=== PATIENT | male | born 1955 | race Caucasian/White ===

== ENCOUNTER 2019-04-06 08:48 | Outpatient (RCR) | payer OTHER, SELFPAY | END 2019-05-04 00:01 | LOC: SPT 08:48 | PROVIDERS: Visit Provider Orthopaedic Surgery | DX: S46.091D Other injury of muscle(s) and tendon(s) of the rotator cuff of right shoulder, subsequent encounter (principal); X58.XXXD Exposure to other specified factors, subsequent encounter; M25.611 Stiffness of right shoulder, not elsewhere classified; M25.511 Pain in right shoulder | CPT/HCPCS: 97110 ×11; 97162 ==

== ENCOUNTER 2019-05-05 06:00 | Outpatient (RCR) | payer OTHER, SELFPAY | END 2019-06-04 23:59 | disposition home or self-care (01) | LOC: SPT 06:00 | PROVIDERS: Visit Provider Orthopaedic Surgery | DX: Z47.89 Encounter for other orthopedic aftercare (principal) | CPT/HCPCS: 97110 ==

== ENCOUNTER 2019-06-05 06:00 | Outpatient (RCR) | payer OTHER, SELFPAY | END 2019-07-03 23:59 | disposition home or self-care (01) | LOC: SPT 06:00 | PROVIDERS: PCP Orthopaedic Surgery; Visit Provider Orthopaedic Surgery | DX: Z47.89 Encounter for other orthopedic aftercare (principal) | CPT/HCPCS: 97110 ==

== ENCOUNTER 2019-07-21 07:02 | Outpatient (CLI) | payer OTHER, SELFPAY ==
--- NOTE | 2019-07-21 07:08 | MR_ITS ---
WS: [id number] MRI RIGHT SHOULDER NONCONTRAST TECHNIQUE: Sagittal T2, coronal T1, T2 and proton density imaging. Axial gradient PDE imaging. CLINICAL INFORMATION: status post rotator cuff repair COMPARISON: March 05, 2019 FINDINGS: Moderate degenerative arthritis AC joint with mild downsloping acromion. Edema in the AC joint. Inter inder rotator cuff repair is new since the prior examination. Susceptibility artifact from rotator cuff anchors. Distal supraspinatus tendon has been repositioned and anchored distally. Distal supraspinat us tendon is intact and appears improved. Infraspinatus tear appears improved with dorsal tendons int act distally. Normal teres minor. Degenerative fraying of the glenoid labrum which appears intact. Tiny chronic atr ophy of the biceps in the bicipital groove. Tendinopathy in the distal subscapularis tendon. Small sue int effusion. MR/MR shoulder RT wo con* [id number] IMPRESSION: 1. Interval rotator cuff repair with improved appearance of the supraspinatus and infraspinatus tendon with intact tendons anchored distally. No new tears. 2. Tiny biceps tendon in the bicipital groove with chronic atrophy. 3. Tendinopathy/partial intrasubstance tear in the distal subscapularis tendon . 4. Moderate degenerative arthritis of the AC joint with mild edema.
== END 2019-07-21 07:03 | disposition home or self-care (01) ==
LOC: RADSHAW 07:04
PROVIDERS: PCP Orthopaedic Surgery; Visit Provider Orthopaedic Surgery
DX: Z98.890 Other specified postprocedural states (principal); M75.101 Unspecified rotator cuff tear or rupture of right shoulder, not specified as traumatic; M19.011 Primary osteoarthritis, right shoulder
CPT/HCPCS: 73221

== ENCOUNTER 2019-07-29 05:44 | Day surgery (SDC) | payer OTHER, SELFPAY ==
[2019-07-29] VITALS (8 sets, daily range): BP systolic 113–169; BP diastolic 67–111; PULSE 84–98; RESP 16–18; TEMP 36.1–36.4; O2SAT 94–96; BMI 25.0
[2019-07-29] MEDS: sodium chloride 0.9% 1,000 ML 30 ML IV (06:29)
--- NOTE | 2019-07-29 07:21 | ANES.PREANE2 ---
Pre-Anesthetic Assessment Pre-Anesthetic Assessment: Height/Weight: Height 1.68 m Weight 70.307 kg Temp Pulse Resp BP Pulse Ox 97.6 F 98 18 122/98 95 07/29/19 06:13 07/29/19 06:13 07/29/19 06:13 07/29/19 06:13 07/29/19 06:13 Preop Diagnosis: Right rotator cuff tear Proposed Procedure: Operation Date: 07/29/19 08:00 Proposed Procedures p Shoulder Arthroscopy M75.121 [id number](Right) - Berlin Zamora MD s Rotator Cuff Repair(Right) - Berlin Zamora MD Last intake: Intake Last Liquid Date 07/28/19 Last Liquid Time 20:00 Last Solid Date 07/28/19 Last Solid Time 20:00 Social: Social History: Tobacco Packs per day: 1 Pack years: >50 Exam: Pre-Anes Outpt Exam: alert, oriented x 3, clear to auscultation bilaterally and regular rate & rhythm Airway: Submandibular: WNL Cervical ROM: WNL MP: 1 Additional comments: very poor CV/HEM: Comments: 2 blocks/2FOS without angina/mild LEON Musc/skel: Musc/skel: Lower Back Pain Comments: nonradiating Anesthetic Plan: ASA status: 2 Anesthesia: Eval. for regional block and General Meds/Allergies Current Medications: Current Medications Generic Name Dose Route Start Last Admin Trade Name Freq PRN Reason Stop Dose Admin Sodium Chloride 1,000 mls @ 30 ml s/hr 07/29/19 06:15 07/29/19 06:29 Sodium Chloride 0.9% IV 07/30/19 06:14 30 mls/hr .Q24H KERWIN Administration PFSH Anesthesia PFSH: Social History Smoking and tobacco status: current every day smoker Quit status (tobacco): considering quitting Alcohol intake: current Alcohol intake frequency: few times a week Data Anesthesia Cardiac Studies: No Data to Display
--- NOTE | 2019-07-29 07:42 | ANES.PROC ---
Anesthesia Procedures Procedure/Date: 07/29/19 Right interscalene block Procedure Narrative: R&B's of right interscalene block for postop pain mx of right shoulder surgery disc'd. Verbal and written consent obtained. Versed 2+1+1mg, Fentanyl 50ug. US utilized to identify right interscalene groove, JULIANN. Ropvicaine 0.5% + Lido 2% with epi in 3:1 ratio infiltrated 20cc total volume without problems/complications. Nerve stimulator utilized at 0.6 mAMPS Nerve Block ^: Nerve Block 1: Main Anesthesia: general anesthesia Time Out Performed: Yes Consent: requested by attending/covering physician, from patient, risks and benefits reviewed and patient agrees to proceed Nerve block location: interscalene Anesthesia monitors applied: pulse oximetry and oxygen Nerve block position: supine Anesthetic Used: lidocaine 2%, ropivicaine 0.5% and with epi Amount of anesthesia used (mL): 20 Nerve Stimulator Used?: Yes Interscalene/Femoral BLK: 2 stimuplex 22 g needle used for position and inplane approach, visualize local anesthetic spread and no vascular puncture identified Injection: neg aspiration of heme Patient Tolerated Procedure: well and no complications
[2019-07-29] MEDS: midazolam 1 mg/mL INJ 5 ML 5 MG IVP (07:43)
[2019-07-29] MEDS: fentaNYL 50 mcg/mL INJ 2mL 100 MCG IVP (07:44)
--- NOTE | 2019-07-29 08:01 | W.PM.OPSUD ---
Surgery/Procedure H&P Update DATE OF PROCEDURE: July 29, 2019 DATE H&P PERFORMED: 07/26/19 PREOP DIAGNOSIS: Right rotator cuff tear PLANNED PROCEDURE: Operation Date: 07/29/19 08:00 Proposed Procedures p Shoulder Arthroscopy M75.121 [id number](Right) - Berlin Zamora MD s Rotator Cuff Repair(Right) - Berlin Zamora MD
--- NOTE | 2019-07-29 12:15 | PM.OP ---
Operative Report Date of procedure: July 29, 2019 Pre-op Diagnosis: Right rotator cuff tear, recurrent Post-op diagnosis: same Post-op Findings: Large recurrent tear right rotator cuff Procedure Done: Arthroscopic repair right rotator cuff with bio inductive implant Implants: Silver and Nephew Regeneten bio inductive imp Pathology: none sent Anesthesia: General and Nerve Block (Interscalene block) Estimated blood loss (mL): 25 Complications: None Findings: The patient had a large tear of the right rotator cuff beginning just posterior to the bicipital groove extending 2 cm posteriorly with approximately 2 cm of tendinous retraction. Overall tendon quality was reasonable. Bone quality was reasonable. Condition: stable Brief History: The patient is a 63-year-old male who underwent rotator cuff repair for traumatic tear in March 05 2019. He describes persistent pain requiring narcotics and inability to regain active use despite no incidence of trauma. He was a heavy smoker. MRI revealed recurrent tearing of his right rotator cuff. He was taken to the operating room for repair of the rotator cuff to improve pain and function and hopefully return him back to work. Procedure: The patient was taken to the operating room after he was given an interscalene block. He was given 2 g of Ancef and positioned in the lateral position with the right arm in 15 pounds of traction. The scope was placed through a posterior portal. Lateral and anterior while working portals were fashioned. The large recurrent tearing of the rotator cuff was identified. Utilizing the Silver and Nephew Werewolf probe the bursal and articular adhesions of the retracted supraspinatus tear were identified. With a grasper of the rotator cuff could then be drawn back to the medial edge of the debrided greater tuberosity. This corresponded to the previous medial row of anchors. Through a posterior lateral stab wound a 5.5 mm Silver and Nephew Helicoil anchor was in place. A Silver and Nephew FirstPass suture passer was used to shuttle 1 limb of the ultra tray through the posterior lateral aspect of the rotator cuff approximately 5 mm from the tendon edge.. The other limb of ultra tape was passed approximately a centimeter anteriorly in identical fashion. An ultra tape was placed in a central and slightly more medial position. This was repeated 2 more times moving anteriorly. The Ultratape were initially secured followed by the Ultrabraid repairing the rotator cuff with 3 modified Wislon type stitches. Next through a lower more lateral portal the Silver and Nephew Regeneten implant was placed. It was fixed medially anteriorly and posteriorly with soft tissue anibal and laterally with 2 bone anibal all with excellent purchase. Shoulder was irrigated with saline. Portals were closed with 3-0 Prolene. Sterile dressings were applied. The patient was placed in an abduction pillow, extubated, and taken recovery room in stable condition.
== END 2019-07-29 11:47 | disposition home or self-care (01) ==
PROVIDERS: Visit Provider Orthopaedic Surgery
PROC: (CPT 29805; principal; 2019-07-29 08:00)
PROC: (CPT 29827; 2019-07-29 08:00)
DX: M75.101 Unspecified rotator cuff tear or rupture of right shoulder, not specified as traumatic (principal); F17.210 Nicotine dependence, cigarettes, uncomplicated
CPT/HCPCS: 29827; 12345; 96374; 96375; C1713; J0690; J1100; J2001; J2250; J2370; J2405; J2704; J2795; J3010; J3490; J7030

== ENCOUNTER 2019-10-15 06:00 | Outpatient (RCR) | payer OTHER, SELFPAY | END 2019-11-02 23:59 | disposition home or self-care (01) | LOC: SPT 06:00 | PROVIDERS: PCP Orthopaedic Surgery; Visit Provider Orthopaedic Surgery | DX: Z47.89 Encounter for other orthopedic aftercare (principal); Z98.890 Other specified postprocedural states | CPT/HCPCS: 97110; 97162 ==

== ENCOUNTER 2019-11-03 06:00 | Outpatient (RCR) | payer OTHER, SELFPAY | END 2019-12-03 23:59 | disposition home or self-care (01) | LOC: SPT 06:00 | PROVIDERS: PCP Orthopaedic Surgery; Visit Provider Orthopaedic Surgery | DX: Z47.89 Encounter for other orthopedic aftercare (principal) | CPT/HCPCS: 97110 ==

== ENCOUNTER 2019-12-04 06:00 | Outpatient (RCR) | payer OTHER, SELFPAY | END 2020-01-03 23:59 | disposition home or self-care (01) | LOC: SPT 06:00 | PROVIDERS: PCP Orthopaedic Surgery; Referring Provider Orthopaedic Surgery; Visit Provider Orthopaedic Surgery | DX: Z47.89 Encounter for other orthopedic aftercare (principal) | CPT/HCPCS: 97110 ==

== ENCOUNTER 2020-01-04 06:00 | Outpatient (RCR) | payer OTHER, SELFPAY | END 2020-01-28 14:34 | disposition home or self-care (01) | LOC: SPT 06:00 | PROVIDERS: PCP Orthopaedic Surgery; Referring Provider Orthopaedic Surgery; Visit Provider Orthopaedic Surgery | DX: Z47.89 Encounter for other orthopedic aftercare (principal) | CPT/HCPCS: 97110 ==

== ENCOUNTER 2020-10-06 12:31 | Outpatient (CLI) | payer SELFPAY ==
--- NOTE | 2020-10-06 13:00 | MR_ITS ---
WS: [id number] MRI HEAD WITHOUT CONTRAST WITH ATTENTION TO THE INTERNAL AUDITORY CANALS TECHNIQUE: Sagittal T1, T2 axial, T2 axial flair, axial susceptibility weighted imaging, axial diffus ion weighted images, and coronal T2 images were obtained. Pre T1 axial and T1 coronal images. ADC and FSPGR images. Axial and coronal fiesta imaging. CLINICAL INFORMATION: HEARING LOSS/NOISE IN LEFT EAR COMPARISON: MRI 12 17,015 FINDINGS: Patient refused IV contrast No evidence of restricted diffusion to suggest acute ischemia. Ventricular system and basal cisterns are patent. Mild small vessel changes. Moderate parenchymal volume loss. No extra axial fluid collect ions. No evidence of mass or mass effect. Small vessel changes in the osvaldo. Normal vascular flow void s at the skull base. Mild mucosal thickening in the paranasal sinuses. Mastoid air cells are well ae rated. No hemosiderin on susceptibly weighted images. Seventh and eighth proximal cranial nerves are normal. Normal trigeminal nerve root entry zones. No e vidence of IAC or CP angle mass. MR/MR iac's wo con [id number] IMPRESSION: 1. No evidence of restricted diffusion to suggest acute ischemia. 2. Mild small vessel changes with moderate parenchymal volume loss. Small vess el changes in the osvaldo. 3. Noncontrast proximal 7th and 8th cranial nerves are normal in appearance. N o IAC or CP angle mass. 4. Mild mucosal thickening in the paranasal sinuses. 5. No hemosiderin on susceptibly weighted images.
== END 2020-10-06 12:32 | disposition home or self-care (01) ==
LOC: RADSHAW 12:35
PROVIDERS: Visit Provider Otolaryngology
DX: H83.3X2 Noise effects on left inner ear (principal)
CPT/HCPCS: 70551

== ENCOUNTER 2021-08-06 10:48 | Emergency (ER) | payer MEDICARE, SELFPAY ==
[2021-08-06 11:08] VITALS: BP 125/85; PULSE 85; RESP 20; TEMP 36.8; O2SAT 95; BMI 25.2
--- NOTE | 2021-08-06 11:23 | XR_ITS ---
WS: [id number] XR knee RT 3V* [id number] REASON FOR EXAM: knee pain for past couple months FINDINGS: No fracture or focal bone lesion. Minimal narrowing of the medial knee joint space with moderate marginal osteophyte formation. Moderat e subchondral sclerosis in the subarticular medial tibia. Lateral knee joint spaces intact and well preserved without significant subchondral bone abnormality. Mild narrowing of the patellofemoral joint space with subchondral sclerosis and minor marginal osteop hyte formation of the patella. No soft tissue abnormality. XR/XR knee RT 3V* [id number] IMPRESSION: Osteoarthritis of the right knee involving the medial knee joint space as above .
--- NOTE | 2021-08-06 11:23 | XR_ITS ---
WS: [id number] XR knee LT 3V* [id number] REASON FOR EXAM: knee pain for past couple months FINDINGS: No fracture or focal bone lesion. Mild narrowing of the medial knee joint space with subchondral sclerosis and small marginal osteophyt es. Lateral knee joint space is intact without significant subchondral bone abnormality. Mild narrowing of the patellofemoral joint space with mild subchondral sclerosis and minor osteophyti c spurring of the patella. XR/XR knee LT 3V* [id number] IMPRESSION: Mild to moderate changes of osteoarthritis in the left knee.
--- NOTE | 2021-08-06 11:24 | ED_ITS ---
HPI - Extremity Problem General: Chief complaint: Extremity Problem,Nontraumatic Stated complaint: knee pain Time Seen by Provider: 08/06/21 11:22 History of Present Illness: Patient is a 65 male comes to the ED with bilateral knee pain. Denies any injury or trauma to cause pain. He says it has been going on for the past several years. Patient just got approved for Medicare and wanted to come in and get his knee pain checked out. He rates the knee pain a 10 out of 10 when ambulating. At rest his pain is minimal. Associated symptoms: Deny chest pain, fever(s) or rash Review of Systems Const: Denies: fever(s), chills or fatigue Eyes: Denies: change in vision or eye discomfort ENMT: Denies: throat pain, odynophagia, nasal discharge or nasal congestion Card: Denies: chest pain, palpitations, edema, swelling of feet/ankles, dyspnea on exertion or orthopnea Resp: Denies: dyspnea, productive cough or non-productive cough GI: Denies: abdominal pain, nausea, vomiting, diarrhea, constipation or hematochezia : Denies: flank pain, difficulty urinating, dysuria or hematuria Musc: Reports: extremity pain (bilateral knee pain); Denies: neck pain, back pain or extremity swelling Skin/Breast: Denies: rash or new lesions Neuro: Denies: headache(s), numbness in extremities or weakness in extremities PFS ED PFSH: Medical History No pertinent family history Surgical History No pertinent past surgical history Social History Smoking and tobacco status: current every day smoker cigarettes Packs smoked per day: 1 Years cigarettes smoked: 50 Quit status (tobacco): considering quitting Alcohol intake: current Alcohol intake frequency: few times a week Physical Exam Const: COMMON NORMALS: no acute distress, patient oriented x3 and alert GENERAL APPEARANCE: cooperative and comfortable HENMT: COMMON NORMALS: normocephalic HEAD & SCALP: normocephalic MOUTH: Normal oral and palatal mucosa present THROAT: posterior oropharynx normal and uvula midline Neck/C-Spine: COMMON NORMALS: supple GENERAL: Yes normal visual inspection Resp: COMMON NORMALS: normal respiratory effort, No retractions, No use of accessory muscles and clear to auscultation bilaterally AUSCULTATION: clear to auscultation bilaterally Cardio: COMMON NORMALS: regular rate, regular rhythm, S1 normal heart sound present, S2 normal heart sound present, No gallops present (Cardio), No clicks present (Cardio), No murmurs present (Cardio) and Peripheral pulses 2+ throughout RATE: regular rate RHYTHM: regular rhythm HEART SOUNDS: S1 normal heart sound present and S2 normal heart sound present PERIPHERAL PULSES: Peripheral pulses 2+ throughout GI: COMMON NORMALS: Normal to inspection, nondistended, normoactive bowel sounds present, Soft to palpation, non-tender and no masses PALPATION: Yes Soft to palpation : COMMON NORMALS: Yes no CVA tenderness BLADDER/KIDNEY EXAM: Yes no CVA tenderness Back/Pelvis: COMMON NORMALS: no CVA tenderness Extremity: COMMON NORMALS: normal to inspection, full ROM and no pedal edema Neuro: COMMON NORMALS: patient oriented x3 and moves all extremities SENSORIUM/ORIENTATION: Yes alert Skin: GENERAL SKIN EXAM: dry skin Course Vital Signs: Vital signs: Vital Signs Temperature 98.3 F 08/06/21 11:08 Pulse Rate 85 08/06/21 11:08 Respiratory Rate 20 H 08/06/21 11:08 Blood Pressure 125/85 08/06/21 11:08 Pulse Oximetry 95 08/06/21 11:08 MDM - Extremity (Nontraumatic) Medical Decision Making Patient is a 65-year-old male comes to the ED with bilateral knee pain. Denies any injury or trauma to cause pain. He says it has been going on for the past several years. Patient just got approved for Medicare and wanted to come in and get his knee pain checked out. He rates the knee pain a 10 out of 10 when ambulating. At rest his pain is minimal. Vitals stable. Exam of patient is benign. X-rays of both right and left knee show moderate osteoarthritis. Patient was diagnosed with osteoarthritis and discharged home with a prescription for meloxicam. He was told to follow-up with his PCP in the next 7 to 10 days for reevaluation. Return to ED precautions given. Patient asked and agree with plan. Lab Data Radiology Impressions Knee X-Ray 08/06/21 11:23 IMPRESSION: Mild to moderate changes of osteoarthritis in the left knee. Discharge Plan Discharge Patient Disposition: Home Clinical Impression: Osteoarthritis of knees, bilateral Qualifiers: Osteoarthritis type: primary Qualified Code(s): M17.0 - Bilateral primary osteoarthritis of knee Condition: Stable Prescriptions: New meloxicam 15 mg tablet 15 mg PO DAILY PRN (Reason: pain) Qty: 20 0RF No Action naproxen sodium [Aleve] 220 mg tablet 220 mg PO BID PRN (Reason: Pain (Scale Score 1-3)) 0RF aspirin 81 mg Tablet,Delayed Release (Dr/Ec) 81 mg PO DAILY 0RF multivitamin Capsule 1 cap PO DAILY 0RF Discharge Orders: Discharge ED (Routine); Ordered 08/06/21 Ordered By: Lázaro Haywood Discharge Diet: Regular Discharge Activity: Increase activity as tolerated Patient Instructions: Osteoarthritis (DC), Knee Pain (ED) Activity Restrictions/Additional Instructions: Follow-up with medical provider as directed in the next 7 to 10 days for reevaluation.Take medications as prescribed. Return to the ER or your medical provider if condition worsens. Please read and understand discharge instructions. Thank you for choosing [facility] for your healthcare needs today. Please realize this is an emergency room and that we are providing you with a medical screening exam and this may not be complete and all inclusive of all the testing and or work up that you may need to determine your ailment or severity of your illness. It is very important that you follow up as instructed or that you return to the Emergency Department should you have concerns or if your condition changes or worsens in any way. Coding Level of Care Code ED [employer] Engineer for Katie Brizuela Exam Comprehensive
== END 2021-08-06 12:51 | disposition home or self-care (01) ==
PROVIDERS: Emergency Provider Physician Assistant
DX: M17.0 Bilateral primary osteoarthritis of knee (principal); F17.210 Nicotine dependence, cigarettes, uncomplicated; Z79.82 Long term (current) use of aspirin
CPT/HCPCS: 73562; 99282

== ENCOUNTER → 2021-08-22 13:42 | Outpatient (BNVA) | payer MEDICARE, SELFPAY | PROVIDERS: PCP Family Medicine; Referring Provider Family Medicine; Visit Provider Surgery | DX: K92.1 Melena (principal); F17.210 Nicotine dependence, cigarettes, uncomplicated | CPT/HCPCS: 99203 ==

== ENCOUNTER 2021-08-24 12:51 | Outpatient (CLI) | payer MEDICARE, SELFPAY ==
--- NOTE | 2021-08-24 13:01 | CT_ITS ---
WS: [id number] LDCT LUNG CANCER SCREENING HISTORY: HX OF TOBACCO USE TECHNIQUE: Axial imaging performed from the apices to 1 cm below the costophrenic angles. Coronal and sagittal reformats are submitted with axial MIP series. All CT scans at [facility] use at least one of these dose optimization techniques: automated exposure control; mA and/or kV adjustment per patient size (includes targeted exams where dose is matched to clinical indication); or iterativ e reconstruction. DLP: 77.51 mGy.cm DIvol: Mean CTDIvol: 1.60 (mGy) COMPARISON: None available. Diagnostic quality: Satisfactory Lung Nodules: No lung nodules are identified. There is an artifact through the lung bases posteriorly . No endobronchial lesions. Lungs: No pneumonia. There is a focal area of pleural thickening at the medial RIGHT lung base. This is within an area of distortion of soft tissues. May be due to the low dose imaging and artifact. Thi s area measures 2.6 x 2.2 cm. This is pleural based. Heart: Normal size heart. No pericardial effusion. Other findings: Minimal atherosclerosis aorta. Normal size pulmonary artery. No adenopathy. CT/CT lung screening [id number] IMPRESSION: LUNG-RADS: 4B-Suspicious FOLLOW UP: Chest CT with or without contrast OTHER FINDINGS (S MODIFIER): None. Chest CT with contrast is recommended at this time. There is a pleural-based ma ss at the medial RIGHT lung base which could be related to an artifact as there is also artifact at the LEFT lung base but is less masslike. CT at this time p erformed to better evaluate this pleural-based lesion in the RIGHT lower lobe.
== END 2021-08-24 12:52 | disposition home or self-care (01) ==
PROVIDERS: PCP Family Medicine; Visit Provider Family Medicine
DX: Z12.2 Encounter for screening for malignant neoplasm of respiratory organs (principal); Z87.891 Personal history of nicotine dependence; R91.8 Other nonspecific abnormal finding of lung field
CPT/HCPCS: 71271

== ENCOUNTER 2021-08-27 09:01 | Outpatient (CLI) | payer MEDICARE, SELFPAY ==
--- NOTE | 2021-08-27 09:16 | XR_ITS ---
WS: [id number] Left shoulder, 3 views, 08/27/2021 Clinical Data: IMPINGMENT SYNDROME OF LEFT SHOULDER Comparison: Left shoulder, 12/12/2014. Findings: No fractures or dislocations are seen. There is mild osteoarthritic change of the inferior glenoid ri m and the lesser tuberosity. There are cystic changes of the greater tuberosity. There is mild osteoa rthritis of the left AC joint. 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
== END 2021-08-27 09:02 | disposition home or self-care (01) ==
LOC: RAD 09:08
PROVIDERS: PCP Family Medicine; Visit Provider Family Medicine
DX: M75.42 Impingement syndrome of left shoulder (principal); M19.012 Primary osteoarthritis, left shoulder
CPT/HCPCS: 73030

== ENCOUNTER → 2021-09-11 08:11 | Outpatient (BNVA) | payer MEDICARE, SELFPAY | PROVIDERS: PCP Family Medicine; Visit Provider Internal Medicine | DX: R76.8 Other specified abnormal immunological findings in serum (principal); M25.50 Pain in unspecified joint; Z11.59 Encounter for screening for other viral diseases; R06.00 Dyspnea, unspecified; R63.4 Abnormal weight loss; Z68.25 Body mass index [BMI] 25.0-25.9, adult; F17.210 Nicotine dependence, cigarettes, uncomplicated | CPT/HCPCS: 36415; 72202; 73120; 80053; 81003; 82306; 82550; 82607; 82784; 83516; 83735; 84100; 84443; 85025; 85651; 86160; 86162; 86200; 86235; 86255; 86376; 86704; 86803; 87340; 99214 ==

== ENCOUNTER 2021-09-13 07:16 | Day surgery (SDC) | payer MEDICARE, SELFPAY ==
[2021-09-13 07:43] VITALS: BP 115/95; PULSE 112; RESP 18; TEMP 36.2; O2SAT 96
[2021-09-13 07:48] VITALS: BMI 25.0
[2021-09-13] MEDS: sodium chloride 0.9% 1,000 ML 30 ML IV (07:55)
--- NOTE | 2021-09-13 08:15 | ANES.PREANE2 ---
Pre-Anesthetic Assessment Height/Weight: Height 1.68 m Weight 70.307 kg Temp Pulse Resp BP Pulse Ox 97.1 F L 112 H 18 115/95 96 09/13/21 07:43 09/13/21 07:43 09/13/21 07:43 09/13/21 07:43 09/13/21 07:43 Preop Diagnosis: Black stool and screening Operation Date: 09/13/21 09:00 Proposed Procedures p EGD [id number]/k92.1/z12.11(Not Applicable) - Fredy Sweeney MD s Colonoscopy(Not Applicable) - Fredy Sweeney MD Familial anesthetic complications: none Was Beta Aparna taken within 24 hours: N/A Last intake: Intake Last Liquid Date 09/12/21 Last Liquid Time 23:45 Last Solid Date 09/11/21 Last Solid Time 18:00 Social Tobacco Exam alert, oriented x 3 and regular rate & rhythm wheezing b/l Airway Cervical ROM: within normal limits Mallampati: Class II Dentition: chipped and loose Comments: Comments: Very poor dentition Pulmonary Cough, Exertional Dyspnea and Shortness of Breath CV/HEM METS = 4 None reported Hepatic None reported GI Gastroesophageal Reflux Disease Metabolic None reported Musc/skel Osteoarthritis/DJD Neuropsych None reported Anesthetic Plan ASA status: 3 (66 year old daily smoker with COPD and LEON with reduced funtional capacity ) Anesthesia: Anesthesia Evaluation and MAC Other: I discussed with the patient risks, goals, and benefits of MAC and general anesthesia. We discussed spectrum of MAC anesthesia including conversion to general as well as possibility of recall of intraoperative stimuli including discomfort/pain. Patient agrees to proceed with MAC. Risk of > 500 ml blood loss (7ml/kg in children): No Medications/Allergies Home Medications Medication Instructions Recorded Confirmed Last Taken Type naproxen sodium 220 mg tablet 220 mg PO BID PRN 05/11/19 09/13/21 3 Months Ago History (Aleve) ~06/16/21 aspirin 81 mg tablet,delayed 81 mg PO DAILY 07/27/19 09/13/21 09/11/21 History release multivitamin 1 cap PO DAILY 07/27/19 09/13/21 09/11/21 History meloxicam 15 mg tablet 15 mg PO DAILY PRN #20 tab 08/06/21 09/13/21 09/07/21 Rx atorvastatin 20 mg tablet 20 mg PO DAILY 09/10/21 09/13/21 09/11/21 History omeprazole 40 mg capsule,delayed 40 mg PO DAILY 09/10/21 09/13/21 09/11/21 History release acetaminophen 500 mg tablet 1,500 mg PO Q6H PRN tab 09/11/21 09/13/21 09/11/21 History (Tylenol Extra Strength) ferrous sulfate 325 mg (65 mg 325 mg PO DAILY 09/12/21 09/13/21 09/11/21 History iron) tablet (iron) Allergies Allergy/AdvReac Type Severity Reaction Status Date / Time No Known Allergies Allergy Verified 09/11/21 09:15 Current Medications Generic Name Dose Route Start Last Admin Trade Name Freq PRN Reason Stop Dose Admin Sodium Chloride 1,000 mls @ 30 mls/hr 09/13/21 07:45 09/13/21 07:55 Sodium Chloride 0.9% IV 09/14/21 07:44 30 mls/hr .Q24H KERWIN Administration PFSH Anesthesia Medical History No pertinent family history Surgical History No pertinent past surgical history Family History Other Cancer Hypertension Denies family history of Rheumatoid arthritis Diabetes Lupus CAD (coronary artery disease) Hyperlipidemia Chronic kidney disease (CKD) Stroke Social History Smoking and tobacco status: current every day smoker cigarettes Packs smoked per day: 1 Years cigarettes smoked: 50 Quit status (tobacco): considering quitting Alcohol intake: current Alcohol intake frequency: 3 or more drinks per day History of recent travel: No Data Anesthesia Cardiac Studies: No Data to Display
--- NOTE | 2021-09-13 08:37 | W.PM.OPSUD ---
Surgery/Procedure H&P Update DATE OF PROCEDURE: September 13, 2021 DATE H&P PERFORMED: 08/22/21 H&P UPDATE INFORMATION: I have reviewed H&P completed within last 30 days, I have examined patient prior to procedure and No changes to prior documentation PREOP DIAGNOSIS: Black stool and screening PRIMARY INDICATION FOR PROCEDURE: The same PLANNED PROCEDURE: Operation Date: 09/13/21 09:00 Proposed Procedures p EGD [id number]/k92.1/z12.11(Not Applicable) - Fredy Sweeney MD s Colonoscopy(Not Applicable) - Fredy Sweeney MD
[2021-09-13 09:12] VITALS: BP 121/81; PULSE 92; RESP 16; TEMP 36.1; O2SAT 95
--- NOTE | 2021-09-13 09:16 | ANE.PACU2 ---
Documented by User: Raquel Burns CRNA 09/13/21 09:16 Inpatient post-anesthesia follow up: Airway intact: Yes Vital signs: Temperature 97 F Pulse Rate 92 Respiratory Rate 16 Blood Pressure 121/81 Pulse Oximetry 95 Oxygen Delivery Me thod Room Air Oxygen Flow Rate Fraction of Inspir ed Oxygen Hydration adequate: Yes Nausea and vomiting: No Pain level: 1 Mental status: Baseline
[2021-09-13 09:30] VITALS: BP 118/84; PULSE 87; RESP 18; O2SAT 95
--- NOTE | 2021-09-13 09:53 | PC.NURSE ---
Patient reported to nurse he would return home today and drink a beer after nurse gave post-op education on not drinking after procedure.
== END 2021-09-13 09:57 | disposition home or self-care (01) ==
PROVIDERS: PCP Family Medicine; Visit Provider Surgery
PROC: 0DJ08ZZ Inspection of Upper Intestinal Tract, Via Natural or Artificial Opening Endoscopic (ICD-10-PCS; CPT 43235; principal; 2021-09-13 09:00)
PROC: 0DJD8ZZ Inspection of Lower Intestinal Tract, Via Natural or Artificial Opening Endoscopic (ICD-10-PCS; CPT 45378; 2021-09-13 09:00)
DX: K92.1 Melena (principal); K21.00 Gastro-esophageal reflux disease with esophagitis, without bleeding; K22.70 Barrett's esophagus without dysplasia; K21.9 Gastro-esophageal reflux disease without esophagitis; K29.50 Unspecified chronic gastritis without bleeding; Z79.82 Long term (current) use of aspirin; F17.210 Nicotine dependence, cigarettes, uncomplicated
CPT/HCPCS: 43239; 88305; G0121; J2704; J7030

== ENCOUNTER → 2021-10-24 13:42 | Outpatient (BNVA) | payer MEDICARE, SELFPAY | PROVIDERS: PCP Family Medicine; Visit Provider Internal Medicine | DX: R76.8 Other specified abnormal immunological findings in serum (principal); M25.50 Pain in unspecified joint; R70.0 Elevated erythrocyte sedimentation rate; Z11.1 Encounter for screening for respiratory tuberculosis | CPT/HCPCS: 99214 ==

== ENCOUNTER 2021-10-26 09:54 | Outpatient (CLI) | payer MEDICARE, SELFPAY ==
--- NOTE | 2021-10-26 10:04 | USCV_ITS ---
Fly Walker Age: 66 Gender: M : 1955 Exam Date: 10/26/2021 10:25 Ordering Phys: Bob Guzman MD Technologist: MARQUES GREGORY [place] Location[place] [facility] [place] Ind[place]: Visual complaint Risk Factors: Previous Vascular Surgery: Right Brachial BP: / Left Brachial BP: / Right Left Velocity (cm/s) Spectral Plaque Velocity (cm/s) Spectral Plaque Syst/Diast Broadening Syst/Diast Broadening 86.00/ 19.80 Prox CCA 85.40 / 17.10 75.00/ 16.50 Mid CCA 86.20 / 23.30 58.40/ 19.80 Distal CCA 61.40 / 22.50 29.80/ 10.30 Prox ICA 40.10 / 15.70 45.90/ 18.60 Mid ICA 51.90 / 23.40 50.60/ 21.00 Distal ICA 56.30 / 20.60 64.40 ECA 41.80 0.68 ICA/CCA 0.65 Antegrade Vertebral Antegrade 30.20/ 13.80 cm/s 34.20/ 10.10 cm/s Tri Subclavian Tri 85.40 89.70 FINDINGS Comparison: none available. No significant elevation of systolic or diastolic velocities. Waveforms are normal. No significant amount of calcified plaque or intimal thickening identified. Antegrade vertebral arteries. CONCLUSIONS Normal carotid doppler ultrasound. Dr. Suzanne Campbell DO (Electronically Signed) Final Date: 26 October 2021 11:26 S
== END 2021-10-26 09:55 | disposition home or self-care (01) ==
LOC: RAD 09:55
PROVIDERS: PCP Family Medicine; Visit Provider Family Medicine
DX: H53.9 Unspecified visual disturbance (principal)
CPT/HCPCS: 93880

== ENCOUNTER 2022-04-15 11:49 | Outpatient (CLI) | payer MEDICARE, SELFPAY ==
--- NOTE | 2022-04-15 12:03 | CTR_ITS ---
PROCEDURE INFORMATION: Exam: CT Chest With Contrast; Diagnostic Exam date and time: 04/15/2022 12:28 PM Age: 66 years old Clinical indication: Abnormal findings; Lung mass or nodule; Single or solitary nodule; Additional info: Abnormal CT of chest, tobacco use. Pleural-based lesion in. The right lower lobe. TECHNIQUE: Imaging protocol: Diagnostic computed tomography of the chest with contrast. Radiation optimization: All CT scans at this facility use at least one of these dose optimization techniques: automated exposure control; mA and/or kV adjustment per patient size (includes targeted exams where dose is matched to clinical indication); or iterative reconstruction. Contrast material: OMNIPAQUE 350; Contrast volume: 95 ml; Contrast route: INTRAVENOUS (IV); COMPARISON: CT lung screening [id number] 08/24/2021 1:06 PM RADIATION DOSE METRICS: Total DLP (mGy-cm): 631.1 FINDINGS: Lungs: There are scattered minor atelectatic changes lower lung zones mildly progressed from previous exam. Pleural spaces: See Soft tissues finding. Heart: Heart is not enlarged. No significant coronary artery calcifications detected. No significant pericardial effusion. Lymph nodes: There are 2 small adjacent right lower para soft eg lymph nodes that have increased in size, nonspecific. Vasculature: Unremarkable. No aortic aneurysm. Bones/joints: There are mild-moderate degenerative changes within the mid lower thoracic spine with accompanying endplate osteophytes, stable. Soft tissues: There is a smoothly marginated pleural-based oval-shaped mass along the right lower paravertebral gutter increased in size now measuring 5.4 x 2.0 x 4.4 cm (compared to 2.6 x 1.2 x 2.2 cm) presumed neoplastic in nature. There is a small subpleural lymph node deep to the mass that has developed from previous exam. There is some adjacent smooth pleural thickening mildly progressed from prior study. Left pleural surface is unchanged unremarkable. CT/CT chest w con* [id number] IMPRESSION: 1. 5.4 x 2.0 x 4.4 cm pleural based mass right lower paravertebral gutter doubled in size from previous exam and presumed neoplastic in nature. CT PET scan or CT-guided needle biopsy recommended for further evaluation. 2. 3 small adjacent lymph nodes increased in size from earlier exam, nonspecific.
[2022-04-15 12:26] LABS: Blood Urea Nitrogen 11 mg/dL (8-23); Glomerular Filtration Rate 84.7 mL/min (90-130)
[2022-04-15] MEDS: iohexol 350 mg/mL 500 mL Btl (per mL) IV (12:31)
== END 2022-04-15 11:50 | disposition home or self-care (01) ==
PROVIDERS: Radiology Diagnostic Radiology; PCP Family Medicine; Visit Provider Family Medicine
DX: R91.8 Other nonspecific abnormal finding of lung field (principal)
CPT/HCPCS: 71260; 82565; 84520; Q9967

== ENCOUNTER 2022-04-18 11:10 | Outpatient (CLI) | payer MEDICARE, SELFPAY | END 2022-04-18 11:11 | disposition home or self-care (01) | PROVIDERS: PCP Family Medicine; Visit Provider Internal Medicine Pulmonary Disease | DX: R91.8 Other nonspecific abnormal finding of lung field (principal); R06.09 Other forms of dyspnea; F17.210 Nicotine dependence, cigarettes, uncomplicated | CPT/HCPCS: 94010; 94726; 94729; 99204 ==

== ENCOUNTER → 2022-07-01 10:09 | Outpatient (BNVA) | payer MEDICARE, SELFPAY | PROVIDERS: PCP Family Medicine; Visit Provider Internal Medicine Pulmonary Disease | DX: R91.8 Other nonspecific abnormal finding of lung field (principal); R06.09 Other forms of dyspnea; F17.210 Nicotine dependence, cigarettes, uncomplicated | CPT/HCPCS: 99214 ==

== ENCOUNTER 2022-07-16 10:19 | Outpatient (CLI) | payer MEDICARE, SELFPAY ==
--- NOTE | 2022-07-16 10:30 | CT_ITS ---
WS: [id number] CT CHEST WITHOUT INTRAVENOUS CONTRAST HISTORY: 3 month f/u lung mass TECHNIQUE: Contiguous 5 mm axial imaging performed on the thorax. Coronal and sagittal reformats are submitted. All CT scans at [facility] use at least one of these dose optimization techniques: automated exposure control; mA and/or kV adjustment per patient size (includes targeted exams where dose is matched to clinical indication); or iterative reconstruction. CONTRAST: None DLP: 290.02 mGy.cm COMPARISON: Chest CT 04/15/2022 and 08/24/2021 Lungs and central airway: Moderate pleural thickening at the RIGHT lung base with mild progression si nce the prior study. Pleural thickening measures up to 9 mm. There is no additional pleural-based sof t tissue mass measuring 4.9 x 3.2 cm extensive along the medial pleural surface of the RIGHT lower th orax over a length of 7.4 cm. Mass extends to abut the diaphragmatic surface also. Probably not signi ficantly changed since the prior exam. Pleura: See above. Heart and pericardium: Normal size heart with no pericardial effusion. Mediastinum and mirza: No mediastinum or hilar adenopathy. Vessels: Mild atherosclerosis aorta. Chest wall and lower neck: Small axillary lymph nodes. Upper abdomen: Mildly contracted gallbladder. Osseous structures: No destructive process. CT/CT chest wo con [id number] IMPRESSION: 1. Persistent pleural thickening and pleural-based soft tissue mass in the RIG HT lower thorax without improvement since 04/15/2022. Neoplastic until proven o therwise. Consider lymphoma, mesothelioma and other neoplasms. 2. No mediastinal adenopathy.
== END 2022-07-16 10:20 | disposition home or self-care (01) ==
PROVIDERS: PCP Family Medicine; Visit Provider Internal Medicine Pulmonary Disease
DX: R91.8 Other nonspecific abnormal finding of lung field (principal)
CPT/HCPCS: 71250

== ENCOUNTER → 2022-08-14 15:00 | Outpatient (BNVA) | payer MEDICARE, SELFPAY | PROVIDERS: PCP Family Medicine; Visit Provider Internal Medicine | DX: R76.8 Other specified abnormal immunological findings in serum (principal); M25.50 Pain in unspecified joint; R70.0 Elevated erythrocyte sedimentation rate | CPT/HCPCS: 99213 ==

== ENCOUNTER 2022-08-16 11:44 | Outpatient (CLI) | payer MEDICARE, SELFPAY ==
[2022-08-16 12:24] LABS: Basophils % 0.4 %; Eosinophils # 0.2 10^3/uL (0.0-0.8); Eosinophils % 3.4 %; Hematocrit 48.5 % (42.0-52.0); Hemoglobin 16.3 g/dL (11.7-16.6); Lymphocytes # 1.3 10^3/uL (0.8-4.8); Lymphocytes % 27.5 %; Mean Corpuscular HGB Conc 33.6 g/dL (30.0-36.0); Mean Corpuscular Hemoglobin 29.6 pg (28.0-34.0); Mean Corpuscular Volume 88.2 fl (80-94); Mean Platelet Volume 9.2 fL (7.4-10.4); Monocytes # 0.2 10^3/uL (0.2-0.9); Monocytes % 3.8 %; Neutrophils # 3.05 10^3/uL (1.8-7.7); Neutrophils % 64.7 %; Nucleated Red Blood Cells % 0 %; Platelet Count 332 10^3/cmm (130-400); Red Cell Distribution Width 11.7 % (12.1-15.1); White Blood Count 4.7 10^3/uL (4.0-10.0)
[2022-08-16 12:32] LABS: Erythrocyte Sedimentation Rate 41 mm/hr (0-10)
[2022-08-16 12:38] LABS: Alanine Aminotransferase 32 U/L (0-41); Albumin Level 4.2 g/dL (3.5-5.2); Alkaline Phosphatase 101 U/L (40-130); Anion Gap 14.1 (5-19); Aspartate Amino Transferase 21 U/L (0-40); Blood Urea Nitrogen 7 mg/dL (8-23); C Reactive Protein 11.3 mg/L (0.0-4.9); Calcium 8.8 mg/dL (8.5-10.5); Carbon Dioxide 24 mmol/L (22-29); Chloride 106 mmol/L (98-107); Globulin 3.5 g/dL (1.3-4.6); Glomerular Filtration Rate 113.2 mL/min (90-130); Glucose 84 mg/dL (65-115); Osmolality Calculated 287 mOsm/kg (285-295); Potassium 4.1 mmol/L (3.5-5.1); Sodium 140 mmol/L (136-145); Total Bilirubin 0.2 mg/dL (0.15-1.2); Total Protein 7.7 g/dL (6.6-8.7)
== END 2022-08-16 11:45 | disposition home or self-care (01) ==
PROVIDERS: PCP Family Medicine; Visit Provider Internal Medicine
DX: R76.8 Other specified abnormal immunological findings in serum (principal)
CPT/HCPCS: 36415; 80053; 85025; 85651; 86140

== ENCOUNTER → 2022-12-23 13:58 | Outpatient (BNVA) | payer MEDICARE, SELFPAY | PROVIDERS: PCP Family Medicine; Visit Provider Internal Medicine | DX: M25.562 Pain in left knee (principal); M25.50 Pain in unspecified joint; R76.8 Other specified abnormal immunological findings in serum; R70.0 Elevated erythrocyte sedimentation rate | CPT/HCPCS: 20610; 73562; 99214; J1030 ==

== ENCOUNTER → 2022-12-30 09:40 | Outpatient (BNVA) | payer MEDICARE, SELFPAY | PROVIDERS: PCP Family Medicine; Visit Provider Internal Medicine Pulmonary Disease | DX: R91.8 Other nonspecific abnormal finding of lung field (principal); R06.09 Other forms of dyspnea; F17.210 Nicotine dependence, cigarettes, uncomplicated | CPT/HCPCS: 99214 ==

== ENCOUNTER 2023-01-13 13:37 | Outpatient (CLI) | payer MEDICARE, SELFPAY ==
--- NOTE | 2023-01-13 13:45 | CT_ITS ---
WS: [id number] CT chest wo con [id number] HISTORY: 6 month f/u TECHNIQUE: Axial imaging performed through the thorax. Coronal and sagittal reformats are submitted. All CT scans at [facility] use at least one of these dose optimization techniques: automated exposure control; mA and/or kV adjustment per patient size (includes targeted exams where dose is mat ched to clinical indication); or iterative reconstruction. CONTRAST: None DLP: 267.14 mGy.cm COMPARISON: Chest CT 08/24/2021, 04/15/2022 and 07/16/2022, PET/CT 05/02/2022 Lungs and central airway: Reidentified is a soft tissue mass in the medial RIGHT lower lobe. Mass abu ts the pleura. May be a subpleural mass. This mass extends over a length of 5.9 cm x 5.1 x 3.4 cm. As compared to 08/24/2021 there is been a moderate increase in size. The additional pleural thickening a nd nodularity is reidentified and stable. Very mild interstitial thickening in the medial LEFT lower lobe. Pleura: No layering pleural effusion. There is pleural thickening on the RIGHT associated with the pl eural-based mass. Heart and pericardium: Normal size heart with no pericardial effusion. Mediastinum and mirza: Small subcentimeter axillary lymph nodes. No mediastinal or hilar adenopathy id entified on this unenhanced exam. Vessels: Normal size aortic and pulmonary artery. No coronary artery calcifications. Chest wall and lower neck: No soft tissue masses. Upper abdomen: Normal. Osseous structures: No destructive process. IMPRESSION: 1. Pleural-based mass, medial RIGHT lower lobe, measures 5.1 x 3.4 cm and extends over a length of 5. 9 cm. Mass has increased in size since the initial examination of 08/24/2021. Not significantly change d since 07/16/2022. There is additional pleural thickening and nodularity at the RIGHT lung base. Mild ly positive on the recent PET/CT. Low-grade malignancy is not excluded. 2. No adenopathy identified on this unenhanced exam.
== END 2023-01-13 13:38 | disposition home or self-care (01) ==
PROVIDERS: PCP Family Medicine; Visit Provider Internal Medicine Pulmonary Disease
DX: R91.8 Other nonspecific abnormal finding of lung field (principal)
CPT/HCPCS: 71250

== ENCOUNTER → 2023-03-31 12:41 | Outpatient (BNVA) | payer MEDICARE, SELFPAY | PROVIDERS: PCP Family Medicine; Visit Provider Internal Medicine | DX: M25.50 Pain in unspecified joint (principal); R76.8 Other specified abnormal immunological findings in serum; R70.0 Elevated erythrocyte sedimentation rate | CPT/HCPCS: 99214 ==

== ENCOUNTER 2023-04-14 11:28 | Outpatient (CLI) | payer MEDICARE, SELFPAY ==
[2023-04-14] VITALS (10 sets, daily range): BP systolic 109–135; BP diastolic 65–97; PULSE 88–104; RESP 13–18; TEMP 36.7–37.4; O2SAT 96–100; BMI 23.8
[2023-04-14] MEDS: sodium chloride 0.9% 1,000 ML 30 ML IV (12:17)
--- NOTE | 2023-04-14 12:30 | CT_ITS ---
WS: [id number] CT-GUIDED BIOPSY RIGHT LUNG/PLEURAL MASS. HISTORY: Slow increasing size of a mass in the medial RIGHT lower lung abutting the pleura. There is additional pleural thickening and nodularity. FLUOROSCOPIC TIME: minutes. DLP: 889.[address] scans at [facility] use at least one of these dose optimization techniques: automated e xposure control; mA and/or kV adjustment per patient size (includes targeted exams where dose is matc hed to clinical indication); or iterative reconstruction. Prior imaging studies: History and physical are reviewed. Procedure, risks and complications were exp lained to the patient and family. Consent is obtained. Noncontrast CT is initially performed to reevaluate the pleural-based mass as the last examination wa s performed on 01/13/2023. The pleural-based mass is reidentified in the medial RIGHT lower lobe measu ring 5.3 x 2.8 cm with adjacent pleural thickening. Mass has not significantly changed in size. Lungs are hyperexpanded from emphysema. No adenopathy. With the patient in a RIGHT lateral decubitus position and mass is targeted posteriorly. Skin is carlito nsed with ChloraPrep and anesthetized with 1% buffered lidocaine. Through a small dermatome a 20-gaug e Temno needle is inserted. Needle is inserted into the central portion of the mass. 4 core biopsies were performed and placed in saline. No complications were encountered. There is no pneumothorax. Patient will be observed for 1 to 2 hours post biopsy. IMPRESSION: 1. Uncomplicated biopsy pleural-based mass in the medial RIGHT lower thorax. 2. No complications.
[2023-04-14 12:56] LABS: INR 0.95 (0.8-1.2)
--- NOTE | 2023-04-14 13:04 | W.PM.OPSUD ---
Surgery/Procedure H&P Update DATE OF PROCEDURE: April 14, 2023 DATE H&P PERFORMED: 08/22/21 H&P UPDATE INFORMATION: Changes to prior documentation as noted here CHANGES TO PREVIOUS DOCUMENTATION: Mr. Fly Walker is a 67-year-old male with significant smoking history hx of 1ppd X 48 years referred from [place] for medial right lower lobe pleural-based mass along the paravertebral gutter seen on CT 04/15/2022 which has increased in size compared to low-dose CT in August 2021. -PET/CT 05/02/[address] [facility]-pleural thickening in posterior inferior right chest most prominent medially where it measures up to 2.5 cm in thickness. There is mild increased activity within this portion of pleural thickening with a max SUV 2.8. Overall findings are most consistent with benign pleural thickening. Repeat CT chest 07/16/2022-showed persistent pleural thickening and pleural-based soft tissue mass in right lower thorax without improvement since April 2022. Repeat CT chest 01/13/2023. Pleural-based mass, medial RIGHT lower lobe, measures 5.1 x 3.4 cm and extends over a length of 5.9 cm. Mass has increased in size since the initial examination of 08/24/2021. Not significantly changed since 07/16/2022. There is additional pleural thickening and nodularity at the RIGHT lung base. Mildly positive on the recent PET/CT. Low-grade malignancy is not excluded. No adenopathy identified on this unenhanced exam. Given his significant smoking history- this is concerning for malignancy; I recommended patient to undergo CT-guided biopsy. Today he is in the hospital to do CT-guided biopsy by interventional radiology. Patient also drinks alcohol on regular basis, there is a suspicion if this is related to aspiration related pneumonia which may have caused some inflammation. he still has occasional right lower chest pleuritic pain. But denied any shortness of breath, fever, chills, unusual weight loss, decreased appetite. 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 Cardiovascular: rrr, nl s1s2, no mrg Abdomen: soft, nt, nd, no r/g, bs+ Extremities: pulses +, no edema, no c/c : no CVA tenderness Skin: intact, no rash MSK: no back or neck pain Neurologic: grossly intact PREOP DIAGNOSIS: Rule out malignancy PRIMARY INDICATION FOR PROCEDURE: Repeat CT chest 01/13/2023. Pleural-based mass, medial RIGHT lower lobe, measures 5.1 x 3.4 cm and extends over a length of 5.9 cm. Mass has increased in size since the initial examination of 08/24/2021. Not significantly changed since 07/16/2022. There is additional pleural thickening and nodularity at the RIGHT lung base. Mildly positive on the recent PET/CT. Low-grade malignancy is not excluded. No adenopathy identified on this unenhanced exam. Given his significant smoking history- this is concerning for malignancy; PLANNED PROCEDURE: Operation Date: 04/14/23 12:[address] Biopsy(Right) - DOCTOR NOT ON FILE Related Problem List Diagnoses (1) Right lower lobe lung mass: (2) Exertional dyspnea: (3) Smoker:
[2023-04-14] MEDS: fentaNYL 50 mcg/mL INJ 2mL 25 MCG IVP (13:40)
[2023-04-14] MEDS: midazolam 1 mg/mL INJ 2 mL IVP (13:42)
--- NOTE | 2023-04-14 15:00 | XR_ITS ---
WS: [id number] PORTABLE CHEST HISTORY: POST LUNG BIOPSY COMPARISON: 01/13/2023 No pneumothorax status post RIGHT lung biopsy. Very mild hazy attenuation in the medial RIGHT lower lung corresponds to the area of pleural thickeni ng and mass previously described. No pleural effusion or pneumothorax. Cardiac size: Normal. Mediastinum/Aorta: Mild atherosclerosis aorta. No osseous abnormality seen. IMPRESSION: No pneumothorax status post RIGHT lung/pleural biopsy.
== END 2023-04-14 11:29 | disposition home or self-care (01) ==
PROVIDERS: Radiology Diagnostic Radiology; PCP Family Medicine; Visit Provider Internal Medicine Pulmonary Disease
DX: K92.1 Melena; R91.8 Other nonspecific abnormal finding of lung field; R06.09 Other forms of dyspnea; F17.200 Nicotine dependence, unspecified, uncomplicated
CPT/HCPCS: 32408; 36415; 71045; 85610; 88305; 88342; 96374; 96375; 99152; 99153; J2250; J3010; J7030

== ENCOUNTER 2024-02-27 11:23 | Outpatient (CLI) | payer MEDICARE, SELFPAY ==
--- NOTE | 2024-02-27 11:35 | XR_ITS ---
WS: [id number] Exam: XR knee RT 3V* [id number] Date/Time of Exam: 02/27/2024 11:36 AM Reason For Exam: Knee pain, right Comparison 08/06/2021. Moderate degenerative changes of the medial joint compartment of the RIGHT knee with joint space narr owing, subcortical cyst formation and marginal osteophytes. The lateral compartment is relatively wel l-maintained. The patellofemoral joint is unremarkable. No joint effusion. Normal soft tissues. XR/XR knee RT 3V* [id number] IMPRESSION: 1. Progressive degenerative change of the medial joint compartment. Kellgren-La wrence grade of 2.
== END 2024-02-27 11:24 | disposition home or self-care (01) ==
PROVIDERS: PCP Family Medicine; Visit Provider Family Medicine
DX: M17.11 Unilateral primary osteoarthritis, right knee (principal); M71.21 Synovial cyst of popliteal space [Baker], right knee; M25.761 Osteophyte, right knee
CPT/HCPCS: 73562

== ENCOUNTER → 2024-03-22 09:10 | Outpatient (BNVA) | payer MEDICARE, SELFPAY | PROVIDERS: PCP Family Medicine; Visit Provider Specialist | DX: M25.561 Pain in right knee (principal); M17.11 Unilateral primary osteoarthritis, right knee | CPT/HCPCS: 73560; 73565; 99204 ==

== ENCOUNTER → 2024-04-09 10:44 | Outpatient (BNVA) | payer MEDICARE, SELFPAY | PROVIDERS: PCP Family Medicine; Visit Provider Specialist | DX: M17.11 Unilateral primary osteoarthritis, right knee; Z71.89 Other specified counseling | CPT/HCPCS: 20610; J7326 ==

== ENCOUNTER → 2024-04-20 11:15 | Outpatient (BNVA) | payer MEDICARE, SELFPAY | PROVIDERS: PCP Family Medicine; Visit Provider Internal Medicine Rheumatology | DX: R76.8 Other specified abnormal immunological findings in serum (principal); M06.00 Rheumatoid arthritis without rheumatoid factor, unspecified site; M19.90 Unspecified osteoarthritis, unspecified site; Z79.899 Other long term (current) drug therapy | CPT/HCPCS: 36415; 80076; 82565; 85025; 85651; 86140; 99214 ==

== ENCOUNTER → 2024-07-07 14:56 | Outpatient (BNVA) | payer MEDICARE, SELFPAY | PROVIDERS: PCP Family Medicine; Visit Provider Nurse Practitioner | DX: M17.11 Unilateral primary osteoarthritis, right knee (principal); Z71.89 Other specified counseling | CPT/HCPCS: 20610; 99213; J1100; J2795; J3301 ==

== ENCOUNTER → 2024-07-19 10:05 | Outpatient (BNVA) | payer MEDICARE, SELFPAY | PROVIDERS: PCP Family Medicine; Visit Provider Nurse Practitioner | DX: M17.11 Unilateral primary osteoarthritis, right knee (principal); Z71.89 Other specified counseling | CPT/HCPCS: 99214 ==

== ENCOUNTER → 2024-08-25 11:14 | Outpatient (BNVA) | payer MEDICARE, SELFPAY | PROVIDERS: PCP Family Medicine; Visit Provider Internal Medicine Rheumatology | DX: R76.8 Other specified abnormal immunological findings in serum (principal); M19.90 Unspecified osteoarthritis, unspecified site; Z79.899 Other long term (current) drug therapy | CPT/HCPCS: 99214 ==

== ENCOUNTER → 2024-10-08 10:55 | Outpatient (BNVA) | payer MEDICARE, SELFPAY | PROVIDERS: PCP Family Medicine; Visit Provider Nurse Practitioner | DX: M17.11 Unilateral primary osteoarthritis, right knee (principal); Z71.89 Other specified counseling | CPT/HCPCS: 20610; J1100; J2795; J3301; J9999 ==

== ENCOUNTER → 2025-01-07 11:25 | Outpatient (BNVA) | payer MEDICARE, SELFPAY | PROVIDERS: PCP Family Medicine; Visit Provider Nurse Practitioner | DX: M17.11 Unilateral primary osteoarthritis, right knee (principal) | CPT/HCPCS: 99214 ==

== ENCOUNTER → 2025-01-18 14:03 | Outpatient (BNVA) | payer MEDICARE, SELFPAY | PROVIDERS: PCP Family Medicine; Visit Provider Internal Medicine Rheumatology | DX: R76.8 Other specified abnormal immunological findings in serum (principal); M19.90 Unspecified osteoarthritis, unspecified site; Z79.899 Other long term (current) drug therapy; M25.561 Pain in right knee | CPT/HCPCS: 99214 ==

== ENCOUNTER 2025-02-28 13:33 | Outpatient (CLI) | payer MEDICARE, SELFPAY ==
--- NOTE | 2025-02-28 13:45 | MR_ITS ---
WS: [email or web address] MRI RIGHT KNEE NONCONTRAST TECHNIQUE: Axial PD, coronal PD fat sat, coronal PD, sagittal PD, and sagittal PD fat-sat images obtained. CLINICAL INFORMATION: right knee pain COMPARISON: None. FINDINGS: Distal distal quadriceps and patella tendons are intact. Hypertrophic patella. ACL and PCL appear intact. Diffuse intra-articular and suprapatellar synovial thickening likely due to osteoarthritis. Lateral meniscus is intact. Blunting with chronic tearing and thinning of the medial meniscus with complete loss of the joint space. Medial and lateral collateral ligaments are intact. Fluid deep to the medial collateral ligament. Soft tissue edema along the joint line. Tiny lobulated popliteal cyst. Small suprapatellar effusion. Advanced tricompartmental arthritis. Subchondral cystic change with edema involving the medial tibial plateau with complete loss of the joint space. [id number] articulation. Grade IV chondromalacia patella. Small suprapatellar effusion. MR/MR knee RT wo con* [id number] IMPRESSION: 1. Advanced tricompartmental arthritis with diffuse subchondral cystic change involving the medial tibial plateau. 2. Grade IV chondromalacia patella. 3. Normal lateral meniscus. Chronic appearing degeneration and tearing of the medial meniscus with blunting and complete loss of the medial compartment joint space. 4. Diffuse synovial thickening likely due to osteoarthritis worse about the me dial joint compartment. Outbridge grading: grade IV: full-thickness cartilage loss with underlying bone reactive changes
== END 2025-02-28 13:34 | disposition home or self-care (01) ==
LOC: RAD 13:35
PROVIDERS: PCP Family Medicine; Visit Provider Nurse Practitioner
DX: M17.11 Unilateral primary osteoarthritis, right knee (principal)
CPT/HCPCS: 73721

== ENCOUNTER → 2025-03-07 14:25 | Outpatient (BNVA) | payer MEDICARE, SELFPAY | PROVIDERS: PCP Family Medicine; Visit Provider Nurse Practitioner | DX: M17.11 Unilateral primary osteoarthritis, right knee (principal) | CPT/HCPCS: 99214 ==

== ENCOUNTER → 2025-03-28 13:36 | Outpatient (BNVA) | payer MEDICARE, SELFPAY | PROVIDERS: PCP Family Medicine; Visit Provider Nurse Practitioner | DX: M17.11 Unilateral primary osteoarthritis, right knee (principal) | CPT/HCPCS: 20610; J1100; J2795; J3301; J9999 ==